=== PATIENT | male | born 1995 | race Caucasian/White ===

== ENCOUNTER 2020-05-29 03:13 | Emergency (ER) | payer OTHER ==
[2020-05-29] MEDS ORDERED: FAMOTIDINE INJ/PF 20 MG/2 ML SDV IV ONE (04:25)
[2020-05-29] MEDS ORDERED: METHYLPREDNISOLONE INJ 125 MG/2 ML SDV IV ONE (04:25)
[2020-05-29] MEDS ORDERED: DIPHENHYDRAMINE HCL 50 MG/ML VIAL IV ONE (04:25)
--- NOTE | 2020-05-29 04:27 | ER Document Report ---
ED Skin Rash/Insect Bite/Abscs - General Chief Complaint: Allergic Reaction Stated Complaint: HIVES Time Seen by Provider: 05/29/20 04:19 Notes: Patient is a 24-year-old male that comes emergency department for chief complaint of an itchy rash that showed up yesterday and has worsened today. Rashes on his arms, legs, is very itchy, he cannot stop scratching. He denies swelling of the face, tongue, throat, difficulty swallowing or breathing, or any other symptoms at this time. Patient states he was started on an antibiotic on Saturday (approximately 5 days ago), he is almost completed this for cellulitis in his right forearm which has resolved at this time. He is on Zoloft but no other medications. He denies history of the same. He cannot remember the antibiotic he is taking. He denies any other complaints or medical history. - Related Data Allergies/Adverse Reactions: No Known Allergies Allergy (Unverified 05/29/20 03:30) Past Medical History - General Information source: Patient - Social History Smoking Status: Never Smoker Chew tobacco use (# tins/day): No Frequency of alcohol use: Occasional Drug Abuse: None Lives with: Family Family History: None Patient has homicidal ideation: No Past Surgical History: Reports: Hx Cholecystectomy, Hx Orthopedic Surgery - x4 shoulder torn ligament, Hx Tonsillectomy - Adenoid removal - Immunizations Immunizations up to date: Yes Hx Diphtheria, Pertussis, Tetanus Vaccination: Yes Review of Systems - Review of Systems Constitutional: See HPI EENT: No symptoms reported Cardiovascular: No symptoms reported Respiratory: No symptoms reported Gastrointestinal: No symptoms reported Genitourinary: No symptoms reported Male Genitourinary: No symptoms reported Musculoskeletal: No symptoms reported Skin: See HPI Hematologic/Lymphatic: No symptoms reported Neurological/Psychological: No symptoms reported Physical Exam - Vital signs Vitals: Temp Pulse Resp BP Pulse Ox 97.9 F 87 20 157/101 H 93 05/29/20 03:18 05/29/20 03:18 05/29/20 03:18 05/29/20 03:18 05/29/20 03:18 - Notes Notes: GENERAL: Patient is somewhat agitated and scratching at his arms HEAD: Normocephalic, atraumatic. EYES: Pupils equal, round, and reactive to light. Extraocular movements intact. ENT: Oral mucosa moist, tongue midline. Oropharynx unremarkable. Airway patent. Uvula normal. NECK: Full range of motion. Supple. Trachea midline. No lymphadenopathy. LUNGS: Clear to auscultation bilaterally, no wheezes, rales, or rhonchi. No respiratory distress. Non-tender chest wall. HEART: Regular rate and rhythm. No murmur ABDOMEN: Soft, non-tender. Non-distended. EXTREMITIES: Moves all 4 extremities spontaneously. No edema, normal radial and dorsalis pedis pulses bilaterally. No cyanosis. BACK: no cervical, thoracic, lumbar midline tenderness. No saddle anesthesia, normal distal neurovascular exam. Moves all extremities in full range of motion. NEUROLOGICAL: Alert and oriented x3. Normal speech. Cranial nerves II through XII grossly intact. Strength 5/5 in all extremities. PSYCH: Irritable and slightly agitated SKIN: There is a scattered erythematous, raised rash over the arms and legs with multiple excoriated areas but there are no vesicles, bullae, pustules, induration, fluctuance, or other concerning findings. No evidence of cellulitis on my exam. Course - Re-evaluation Re-evalutation: Patient with a raised erythematous rash on the arms and legs with some excoriations but no evidence of secondary cellulitis, there is no sloughing of the skin, pustules, vesicles, bulla, or evidence of necrotizing fasciitis. Patient has normal mucous membranes, no fever, evaluation does not suggest Freeman-Brian syndrome either. Patient did have some improvement after Benadryl, Pepcid, Solu-Medrol, because of this we did attempt epinephrine but on reevaluation as this does not seem to have had any effect. This appears to be a drug reaction, probably from the Bactrim patient is on (I could see that he is on this from the system). The reaction is only on the extremities, there is no other abnormality on multiple re-evaluations. Patient will be placed on steroids, antihistamines, and he will stop the Bactrim. The area he showed me that he had a cellulitis previously has healed. I discussed strict return precautions with patient. Patient states understanding and agreement. Stable and well-appearing at time of discharge. - Vital Signs Vital signs: Temp Pulse Resp BP Pulse Ox 98.7 F 89 16 140/70 H 98 07/12/20 06:50 05/29/20 06:50 05/29/20 06:50 05/29/20 06:50 05/29/20 06:50 Discharge - Discharge Clinical Impression: Rash Drug reaction Qualifiers: Encounter type: initial encounter Qualified Code(s): T50.905A - Adverse effect of unspecified drugs, medicaments and biological substances, initial encounter Condition: Stable Disposition: HOME, SELF-CARE Additional Instructions: Your evaluation is consistent with a skin reaction to the sulfa drug that you are taking. Stop the antibiotic, you appear to be allergic to Bactrim (sulfamethoxazole/trimethoprim). Take the steroids as prescribed, take the antihistamine for 1 week. You can also take 25 to 50 mg of Benadryl every 6 hours for itching. Try not to scratch, any areas that you do scratch open you need to clean and apply topical antibiotic dressing to avoid infection. Return immediately if you worsen including developing peeling skin, blistering skin, fever, difficulty swallowing or breathing, or any other concerning or worsening symptoms. Prescriptions: Cetirizine HCl 10 mg PO DAILY #30 tablet Prednisone [Deltasone 10 mg Tablet] 10 mg PO ASDIR PRN #21 tablet PRN Reason:
[2020-05-29] MEDS ORDERED: EPINEPHRINE INJ/PF 1 MG/1 ML AMPULE IM ONE (05:21)
[2020-05-29 06:51] VITALS: BP 140/70
== END 2020-05-29 06:51 | disposition home or self-care (01) ==
LOC: ER 03:13
DX: T50.905A Adverse effect of unspecified drugs, medicaments and biological substances, initial encounter (principal); R21 Rash and other nonspecific skin eruption; L50.9 Urticaria, unspecified
CPT/HCPCS: 99282; 96372; 96374; 96375; J1200; J0171; J2930; S0028